=== PATIENT | female | born 1980 | race Caucasian/White ===

== ENCOUNTER 2018-02-15 03:27 | Observation (INO) ==
[2018-02-15] MEDS ORDERED: Morphine Inj 4 MG/ML Vial IV.PUSH ONE (04:08)
[2018-02-15] MEDS ORDERED: Sod Chloride 0.9% Inj 1,000 ML IV.SIG ONE (04:08)
[2018-02-15 04:30] LABS: Baso # (Auto) 0.1 th/mm3 (0.0-0.2); Baso % (Auto) 0.9 % (0.0-2.0); Eos # (Auto) 0.1 th/mm3 (0.0-0.4); Eos % (Auto) 1.9 % (0.0-4.0); Hematocrit 37.9 % (35.0-46.0); Hemoglobin 12.8 gm/dL (11.6-15.3); Lymph # (Auto) 2.9 th/mm3 (1.0-4.8); Lymph % (Auto) 41.2 % (9.0-44.0); Mean Corpuscular HGB Conc 33.7 % (32.0-36.0); Mean Corpuscular Hemoglobin 29.8 pg (27.0-34.0); Mean Corpuscular Volume 88.5 fL (80.0-100.0); Mean Platelet Volume 9.4 fL (7.0-11.0); Mono # (Auto) 0.4 th/mm3 (0.0-0.9); Mono % (Auto) 5.3 % (0.0-8.0); Neut # (Auto) 3.4 th/mm3 (1.8-7.7); Neut % (Auto) 50.7 % (16.0-70.0); Platelet Count 242 th/mm3 (150-450); Red Blood Count 4.28 mil/mm3 (4.00-5.30); Red Cell Distribution Width 12.5 % (11.6-17.2); White Blood Count 6.9 th/mm3 (4.0-11.0)
[2018-02-15 04:35] LABS: Chloride 105 meq/L (98-107); Potassium 3.7 meq/L (3.5-5.1); Sodium 139 meq/L (136-145)
[2018-02-15 04:39] LABS: Albumin 3.7 g/dL (3.4-5.0); Anion Gap 4 meq/L (5-15); Blood Urea Nitrogen 17 mg/dL (7-18); Calcium 8.8 mg/dL (8.5-10.1); Glucose,Random 89 mg/dL (74-106); Lipase 184 U/L (73-393)
[2018-02-15 04:42] LABS: Alanine Aminotransferase 21 U/L (10-53); Aspartate Aminotransferase 17 U/L (15-37); Glomerular Filtration Rate 88 mL/min (>89)
[2018-02-15 04:44] LABS: Total Protein 7.6 g/dL (6.4-8.2)
[2018-02-15 04:45] LABS: Alkaline Phosphatase 64 U/L (45-117)
--- NOTE | 2018-02-15 05:11 | ED ---
HPI General Chief Complaint: Chest Pain Stated Complaint: Chest pain x1hr Time Seen by Provider: 02/15/18 04:00 Source: patient Mode of arrival: ambulatory Limitations: no limitations History of Present Illness HPI narrative: 37-year-old woman who presents to the emergency department complaining of gastric abdominal pain. She states that she is a history of hepatobiliary disease and cholelithiasis. She had similar symptoms back in September. It done well since then. One minor episode of symptoms several months ago. Tonight she went to bed feeling well and was awoken with severe epigastric abdominal pain and cramping. She had some nausea but no vomiting with it. Describes the pain is excruciating. No fevers or chills. Has had kidney stones in the past but states feels very different than this. No other history of abdominal surgery. No other complaints. Complete Quality Measures for STEMI Alert Patients Related Data Home Medications Medication Instructions Recorded Confirmed buspirone 2.5 mg PO BID 02/15/18 02/15/18 lorazepam 0.5 mg BUCCAL DAILY PRN 02/15/18 02/15/18 pediatric pzgnkfiw-sdtm-ibn 1 tab PO DAILY 02/15/18 02/15/18 [Multi-Vitamins with Iron] ranitidine HCl [Zantac 75] 75 mg PO BID 02/15/18 02/15/18 Allergies Allergy/AdvReac Type Severity Reaction Status Date / Time Cephalosporins Allergy Hives Verified 02/15/18 03:46 omeprazole AdvReac Dizziness Verified 02/15/18 13:03 Review of Systems ROS: all other systems reviewed are negative [facility] Medical History Medical History Biliary colic (Acute) History of anemia as a child (Acute) History of anxiety (Acute) History of wisdom tooth extraction (Acute) Social History Social History Substance History: No History of Abuse Second Hand Smoke Exposure: No Smoking Status: Never smoker How Often Do You Have a Drink Containing Alcohol: Never Recent Travel in [place] within the Last 8 Weeks: No Recent Out of Country Travel within the Last 8 Weeks: No Immunization History Tetanus Immunization: Unsure Hx Influenza Vaccine This Season: Yes Exam Narrative Exam Narrative: GENERAL: Well-appearing 29-year-old woman, appears uncomfortable , nontoxic, no acute distress. SKIN: Focused skin assessment warm/dry. HEAD: Atraumatic. Normocephalic. EYES: Pupils equal and round. No scleral icterus. No injection or drainage. ENT: No nasal bleeding or discharge. Mucous membranes pink and moist. NECK: Trachea midline. No JVD. CARDIOVASCULAR: Regular rate and rhythm. No murmur appreciated. RESPIRATORY: No accessory muscle use. Clear to auscultation. Breath sounds equal bilaterally. GASTROINTESTINAL: Abdomen flat and soft. There is significant epigastric or right upper quadrant tenderness. Positive Hernandez's. MUSCULOSKELETAL: No obvious deformities. No clubbing. No cyanosis. No edema. NEUROLOGICAL: Awake and alert. No obvious cranial nerve deficits. Motor grossly within normal limits. Normal speech. PSYCHIATRIC: Appropriate mood and affect; insight and judgment normal. Course Initial Documented Vital Signs Temperature 97.9 F 02/15/18 03:47 Pulse Rate 82 02/15/18 03:47 Respiratory Rate 20 02/15/18 03:47 Blood Pressure 126/79 02/15/18 03:47 Pulse Oximetry 100 02/15/18 03:47 Last Documented Vital Signs Temperature 97.6 F 02/15/18 16:00 Pulse Rate 84 02/15/18 16:00 Respiratory Rate 20 02/15/18 16:00 Blood Pressure 135/82 02/15/18 16:00 Pulse Oximetry 95 02/15/18 16:00 Medical Decision Making [facility] Narrative Medical decision making narrative: 37-year-old woman presents emergency department with epigastric right upper quadrant abdominal pain. Suspect cholecystitis or biliary colic. Gastritis less likely. Doubt renal stone. She looks otherwise well albeit very uncomfortable at this time. Does not want morphine because she does not want to have to call someone for her ride if she is going home. Medical Screen Exam Complete: Yes Emergency Medical Condition: Yes Lab Data Result diagrams: 02/15/18 04:20 02/15/18 04:20 Lab Results 02/15/18 02/15/18 Range/Units 04:20 04:20 CBC w Diff Auto diff final WBC 6.9 (4.0-11.0) th/mm3 RBC 4.28 (4.00-5.30) mil/mm3 Hgb 12.8 (11.6-15.3) gm/dL Hct 37.9 (35.0-46.0) % MCV 88.5 (80.0-100.0) fL MCH 29.8 (27.0-34.0) pg MCHC 33.7 (32.0-36.0) % RDW 12.5 (11.6-17.2) % Plt Count 242 (150-450) th/mm3 MPV 9.4 (7.0-11.0) fL Neut % (Auto) 50.7 (16.0-70.0) % Lymph % (Auto) 41.2 (9.0-44.0) % [place] % (Auto) 5.3 (0.0-8.0) % Eos % (Auto) 1.9 (0.0-4.0) % Baso % (Auto) 0.9 (0.0-2.0) % Neut # (Auto) 3.4 (1.8-7.7) th/mm3 Lymph # (Auto) 2.9 (1.0-4.8) th/mm3 [place] # (Auto) 0.4 (0.0-0.9) th/mm3 Eos # (Auto) 0.1 (0.0-0.4) th/mm3 Baso # (Auto) 0.1 (0.0-0.2) th/mm3 WBC Differential . Differential Comment . Sodium 139 (136-145) meq/L Potassium 3.7 (3.5-5.1) meq/L Chloride 105 (98-107) meq/L Carbon Dioxide 30.0 (21.0-32.0) meq/L Anion Gap 4 L (5-15) meq/L BUN 17 (7-18) mg/dL Creatinine 0.74 (0.50-1.00) mg/dL Estimated GFR 88 L (>89) mL/min Random Glucose 89 (74-106) mg/dL Calcium 8.8 (8.5-10.1) mg/dL Total Bilirubin 1.1 H (0.2-1.0) mg/dL AST 17 (15-37) U/L ALT 21 (10-53) U/L Alkaline Phosphatase 64 (45-117) U/L Total Protein 7.6 (6.4-8.2) g/dL Albumin 3.7 (3.4-5.0) g/dL Lipase 184 (73-393) U/L Beta HCG, Quant Less than 1 (0-5) mIU/mL Imaging Data Radiologist's impression: Cholangiopancreatography MRI 02/15/18 00:00 CONCLUSION: 1. 1.8 cm gallstone without evidence of common duct stone. No ductal dilatation is seen. No Gallbladder Ultrasound 02/15/18 04:08 CONCLUSION: 1. Extrahepatic biliary dilatation with the common bile duct measuring 7 mm. The gallbladder is distended and the pancreatic duct is at the upper range of normal in terms of size. This is concerning for possible distal common bile duct obstruction. Consider MRCP to further assess. 2. Cholelithiasis. ECG Data Attestation: I personally reviewed and interpreted this ECG as follows: Interpretation: Normal sinus rhythm at a rate of 74, normal axis, normal no acute ischemia. Incomplete right bundle pattern and V1 V2. Discharge Plan Discharge Disposition Patient Disposition: 01 Discharge Home Discharge Condition Condition: Fair Discharge Order Discharge Orders: Discharge Order (Routine); Ordered 02/15/18 Ordered By: Flori Lobato Discharge Details Anticipated Discharge Date: 02/15/18 Physicians Team ED Provider: James Medina Primary Care Provider: Clarence Duque Attending Provider: Flori Lobato Other Providers: Misael Lennon V Status ED Status: Left Department Discharge Information Discharge Date/Time: 02/15/18 07:30
--- NOTE | 2018-02-15 06:19 | US ---
EXAM DATE: 02/15/2018 5:58 AM EDT AGE/SEX: 37 years / Female INDICATIONS: Epigastric pain with elevated bilirubin. CLINICAL DATA: This is the patient's initial encounter. Patient reports that signs and symptoms have been present for 1 day and indicates a pain score of 6/10. MEDICAL/SURGICAL HISTORY: Anemia. None. COMPARISON: No prior exams available for comparison. MEASUREMENTS: Liver:__ 20.0 cm. Common Bile Duct:__ 7mm. FINDINGS: Liver: No mass observed. Normal echotexture. Mild prominence to the intrahepatic biliary system. Portal Vein: Hepatopedal flow seen in portal vein. Common Duct: Dilated at 7 mm. No intraluminal mass or stone visualized. Gallbladder: Small solitary mobile gallstone. No gallbladder wall thickening or pericholecystic flui d. The gallbladder is distended. Pancreas: The visualized portions are within normal limits pancreatic duct at the upper limits of no rmal measuring 3 mm. Right Kidney: Normal echotexture and cortical thickness. No mass or hydronephrosis. Other: None CONCLUSION: 1. Extrahepatic biliary dilatation with the common bile duct measuring 7 mm. The gallbladder is dist ended and the pancreatic duct is at the upper range of normal in terms of size. This is concerning fo r possible distal common bile duct obstruction. Consider MRCP to further assess. 2. Cholelithiasis. Electronically signed by: De Thacker MD 02/15/2018 6:17 AM EDT
[2018-02-15] MEDS ORDERED: Sod Chloride 0.9% Inj 1,000 ML IV.CONT SCH (08:45)
[2018-02-15 10:32] VITALS: RESP 20
--- NOTE | 2018-02-15 13:04 | P.HP ---
History of Present Illness Service: medicine Primary Care Physician: Clarence Duque History of Present Illness: 37 y/o old female who has been having bouts of abdominal pain since x september of this year. She states she gets upper abdominal pain and burning stomach for which she went initially to [facility] and had an ultrasound. She was told she had gallstones. She followed up with Dr Carreon and had an egd and colonoscopy for evaluation and was suppose to be getting HIDA scan. She has been taking zantac on occasion for her burning stomach otherwise was doing ok until last pm when she woke with excruciating pain and cramping that radiated into her chest that brought her to the ER. This episode of pain was more in intense then any prior. She had some nausea but no emesis , no fever or chills. She does state that for the last 2 weeks she has had looser stools, diarrhea. She states she has her menses last thursday as well. - Diagnosis (1) Right upper quadrant abdominal pain (2) Anxiety Review of Systems All other systems reviewed negative except as stated in HPI PMFSH - History History Provided By: Patient, Family Member (spouse) - Medical History Medical History: Medical History (Last Reviewed 02/15/18 @ 05:10 by James Medina MD) History of anemia as a child History of anxiety History of wisdom tooth extraction - Tobacco History Second Hand Smoke Exposure: No Smoking Status: Never smoker - Alcohol History How Often Do You Have a Drink Containing Alcohol: Never - Substance Use History Substance History: No History of Abuse - Travel History Recent Travel in the [place] Within the Last 8 Weeks: No Recent Travel Out of the Country Within the Last 8 Weeks: No - Immunization History Tetanus Immunization: Unsure Hx Influenza Vaccine This Season: Yes Medications and Allergies Active Medications: Active Medications Buspirone HCl (Buspar) 2.5 mg PO BID [facility] Sodium Chloride (Ns Inj) 1,000 mls @ 100 mls/hr IV.CONT .Q10H [facility] Last Admin: 02/15/18 09:33 Dose: 100 mls/hr Ondansetron HCl (Zofran Inj) 4 mg IV.PUSH Q6H PRN PRN Reason: NAUSEA OR VOMITING Sodium Chloride (Ns Flush) 2 ml IV.FLUSH PRN PRN PRN Reason: FLUSH AFTER USING IV ACCESS Allergies Allergy/AdvReac Type Severity Reaction Status Date / Time Cephalosporins Allergy Hives Verified 02/15/18 03:46 omeprazole AdvReac Dizziness Verified 02/15/18 13:03 Home Medications Medication Instructions Recorded Confirmed Type buspirone 2.5 mg PO BID 02/15/18 02/15/18 History lorazepam 0.5 mg BUCCAL DAILY PRN 02/15/18 02/15/18 History pediatric iwixybwm-eaag-eld 1 tab PO DAILY 02/15/18 02/15/18 History [Multi-Vitamins with Iron] ranitidine HCl [Zantac 75] 75 mg PO BID 02/15/18 02/15/18 History Exam Vital signs: Vital Signs 02/15/18 03:47 02/15/18 04:36 02/15/18 04:42 Temperature 97.9 F Pulse Rate 82 60 Respiratory Rate 20 18 16 Blood Pressure 126/79 101/57 L Pulse Oximetry 100 100 02/15/18 06:56 02/15/18 08:45 02/15/18 12:00 Temperature 97.3 F L 97 F L Pulse Rate 60 62 57 L Respiratory Rate 16 20 20 Blood Pressure 107/68 102/56 L 99/54 L Pulse Oximetry 100 100 99 Intake & Output 02/14/18 02/15/18 02/15/18 18:59 06:59 18:59 Intake Total 100 / 100 1000 / 1000 Balance 100 / 100 1000 / 1000 Weight 66.4 kg 66.4 kg Intake: IV 100 / 100 1000 / 1000 Ofirmev Inj 1,000 mg In 100 ml 100 / 100 @ 400 mls/hr IV.SIG ONCE ONE Rx #:[id number] NS Inj 1,000 ML @ Wide Open IV. 1000 / 1000 SIG BOLUS ONE Rx#:[id number] Other: Weight On Admission 66.4 kg - Constitutional no acute distress - Routine HEENT Exam Head: Present: normocephalic Eye: Present: EOMI ENT: Present: mucous membranes moist - Routine Respiratory Exam Present: CTA bilaterally - Routine Cardiovascular Exam Present: RRR - Routine Abdominal Exam Present: tenderness Comments: rt and mid epigatric tenderness to mild palpation - Routine Extremities Exam Present: full ROM - Routine Skin Exam Present: intact - Routine Neurological Exam Present: alert, oriented X3 Results - Labs CBC & Chem 7: 02/15/18 04:20 02/15/18 04:20 Labs: Laboratory Results - last 24 hr 02/15/18 02/15/18 04:20 04:20 CBC w Diff Auto diff final WBC 6.9 RBC 4.28 Hgb 12.8 Hct 37.9 MCV 88.5 MCH 29.8 MCHC 33.7 RDW 12.5 Plt Count 242 MPV 9.4 Neut % (Auto) 50.7 Lymph % (Auto) 41.2 [place] % (Auto) 5.3 Eos % (Auto) 1.9 Baso % (Auto) 0.9 Neut # (Auto) 3.4 Lymph # (Auto) 2.9 [place] # (Auto) 0.4 Eos # (Auto) 0.1 Baso # (Auto) 0.1 WBC Differential . Differential Comment . Sodium 139 Potassium 3.7 Chloride 105 Carbon Dioxide 30.0 Anion Gap 4 L BUN 17 Creatinine 0.74 Estimated GFR 88 L Random Glucose 89 Calcium 8.8 Total Bilirubin 1.1 H AST 17 ALT 21 Alkaline Phosphatase 64 Total Protein 7.6 Albumin 3.7 Lipase 184 Beta HCG, Quant Less than 1 - Imaging Impressions Gallbladder Ultrasound 02/15/18 04:08 CONCLUSION: 1. Extrahepatic biliary dilatation with the common bile duct measuring 7 mm. The gallbladder is distended and the pancreatic duct is at the upper range of normal in terms of size. This is concerning for possible distal common bile duct obstruction. Consider MRCP to further assess. 2. Cholelithiasis. Caprini VTE Risk Assessment Caprini VTE Risk Assessment: No/Low Risk (score <= 1) Caprini Risk Assessment Model: Point Value = 1 Point Value = 2 Point Value = 3 Point Value = 5 Age 41-60 Minor surgery BMI > 25 kg/m2 Swollen legs Varicose veins or History of unexplained or recurrent spontaneous Oral contraceptives or hormone replacement Sepsis (< 1 month) Serious lung disease, including pneumonia (< 1 month) Abnormal pulmonary function Acute myocardial infarction Congestive heart failure (< 1 month) History of inflammatory bowel disease Medical patient at bed rest Age 61-74 Arthroscopic surgery Major open surgery (> 45 min) Laparoscopic surgery (> 45 min) Malignancy Confined to bed (> 72 hours) Immobilizing plaster cast Central venous access Age >= 75 History of VTE Family history of VTE Factor V Leiden Prothrombin [id number] Lupus anticoagulant Anticardiolipin antibodies Elevated serum homocysteine Heparin-induced thrombocytopenia Other congenital or acquired thrombophilia Stroke (< 1 month) Elective arthroplasty Hip, pelvis, or leg fracture Acute spinal cord injury (< 1 month) Prophylaxis Regimen: Total Risk Factor Score Risk Level Prophylaxis Regimen 0-1 Low Early ambulation 2 Moderate Order ONE of the following: *Sequential Compression Device (SCD) *Heparin 5000 units SQ BID 3-4 Higher Order ONE of the following medications: *Heparin 5000 units SQ TID *Enoxaparin/Lovenox 40 mg SQ daily (WT < 150 kg, CrCl > 30 mL/min) *Enoxaparin/Lovenox 30 mg SQ daily (WT < 150 kg, CrCl > 10-29 mL/min) *Enoxaparin/Lovenox 30 mg SQ BID (WT < 150 kg, CrCl > 30 mL/min) AND/OR *Sequential Compression Device (SCD) 5 or more Highest Order ONE of the following medications: *Heparin 5000 units SQ TID (Preferred with Epidurals) *Enoxaparin/Lovenox 40 mg SQ daily (WT < 150 kg, CrCl > 30 mL/min) *Enoxaparin/Lovenox 30 mg SQ daily (WT < 150 kg, CrCl > 10-29 mL/min) *Enoxaparin/Lovenox 30 mg SQ BID (WT < 150 kg, CrCl > 30 mL/min) AND *Sequential Compression Device (SCD) Assessment and Plan - Assessment (1) Right upper quadrant abdominal pain Code(s): R10.11 - Right upper quadrant pain Status: Acute Plan: rt upper quadrant pain recurrent with cholelithiasis and ultasound concerning for distal obstrution, she has had several episodes of this pain this being the worse, She has seen Dr Carreon and had egd/colo. Will get mrcp today. (2) Anxiety Code(s): F41.9 - Anxiety disorder, unspecified Status: Acute Plan: does well with her low dose buspirone, will continue - Plan Discussed Condition With: patient and
[2018-02-15] MEDS ORDERED: Famotidine PF Inj 20 MG/2 ML Vial IV.PUSH SCH (14:00)
[2018-02-15] MEDS ORDERED: Acetaminophen 325 MG Tablet PO PRN (16:50)
--- NOTE | 2018-02-15 17:03 | MR ---
EXAM DATE: 02/15/2018 4:35 PM EDT AGE/SEX: 37 years / Female INDICATIONS: Abdominal pain. CLINICAL DATA: This is the patient's subsequent encounter. Patient reports that signs and symptoms h ave been present for 2 days and indicates a pain score of 3/10. MEDICAL/SURGICAL HISTORY: Anemia. None. COMPARISON: No prior exams available for comparison. TECHNIQUE: Multiplanar, multisequence images of the abdomen were obtained without contrast including dedicated cholangiographic images. FINDINGS: The liver and spleen are normal in size and signal intensity without evidence of focal mass. There i s a 1.8 cm stone within the gallbladder. Examination of biliary tree with multiplanar and 3-D reconst ruction demonstrates no evidence of common duct stone. No intrahepatic or extra hepatic ductal dilata tion is identified. The pancreatic duct is unremarkable. The adrenal glands and kidneys appear stevie l bilaterally. No hydronephrosis or mass lesions are identified. The spleen is normal in size and fr ee of focal defects. No free fluid is identified. CONCLUSION: 1. 1.8 cm gallstone without evidence of common duct stone. No ductal dilatation is seen. No Electronically signed by: Phu Pompa MD 02/15/2018 5:02 PM EDT
--- NOTE | 2018-02-15 17:20 | ECG ---
Date Performed: 02/15/2018 Time Performed: 03:50:42 PTAGE: 37 years EKG: Sinus rhythm INCOMPLETE RIGHT BUNDLE BRANCH BLOCK BORDERLINE ECG PREVIOUS TRACING : 11/07/2014 19.07 Since the previous tracing, no significant change noted DOCTOR: Neel Hartman Interpretating Date/Time 02/15/2018 17:19:08
[2018-02-15 18:03] VITALS: BP 135/82; PULSE 84; TEMP 97.6; O2SAT 95
--- NOTE | 2018-02-15 18:21 | P.CONGI ---
History of Present Illness Chief complaint: choledocholithiasis History of Present Illness: Patient is a 37-year-old female who was admitted to the hospital through the ER today. She had presented to the ER with severe pain in the epigastrium and right upper quadrant. There is no radiation to the back. The pain was associated with nausea however she chills jaundice pruritus.. She reports 2 similar episodes of pain in the past 4 months. She gives history of intermittent heartburn however denies dysphagia constipation diarrhea hematemesis melena hematochezia anorexia or weight loss. Review of Systems Gastrointestinal: Reports abdominal pain, Reports nausea PMFSH - History History Provided By: Patient, Family Member (spouse) - Medical History Medical History: Medical History (Last Updated 02/15/18 @ 12:51 by Flori Lobato MD) History of anemia as a child History of anxiety History of wisdom tooth extraction Kidney stones - Tobacco History Second Hand Smoke Exposure: No Smoking Status: Never smoker - Alcohol History How Often Do You Have a Drink Containing Alcohol: Never - Substance Use History Substance History: No History of Abuse - Travel History Recent Travel in the [place] Within the Last 8 Weeks: No Recent Travel Out of the Country Within the Last 8 Weeks: No - Immunization History Tetanus Immunization: Unsure Hx Influenza Vaccine This Season: Yes Medications and Allergies Active Medications: Active Medications Acetaminophen (Tylenol) 650 mg PO Q4H PRN PRN Reason: HEADACHE Last Admin: 02/15/18 17:16 Dose: 650 mg Buspirone HCl (Buspar) 2.5 mg PO BID [facility] Last Admin: 02/15/18 14:17 Dose: 2.5 mg Famotidine (Pepcid Pf Inj) 20 mg IV.PUSH Q12HR [facility] Last Admin: 02/15/18 14:20 Dose: 20 mg Sodium Chloride (Ns Inj) 1,000 mls @ 100 mls/hr IV.CONT .Q10H [facility] Last Admin: 02/15/18 09:33 Dose: 100 mls/hr Miscellaneous (Pill Splitter) 1 each OTHER UNSCH PRN PRN Reason: SEE LABEL COMMENTS Ondansetron HCl (Zofran Inj) 4 mg IV.PUSH Q6H PRN PRN Reason: NAUSEA OR VOMITING Sodium Chloride (Ns Flush) 2 ml IV.FLUSH PRN PRN PRN Reason: FLUSH AFTER USING IV ACCESS Allergies Allergy/AdvReac Type Severity Reaction Status Date / Time Cephalosporins Allergy Hives Verified 02/15/18 03:46 omeprazole AdvReac Dizziness Verified 02/15/18 13:03 Home Medications Medication Instructions Recorded Confirmed Type buspirone 2.5 mg PO BID 02/15/18 02/15/18 History lorazepam 0.5 mg BUCCAL DAILY PRN 02/15/18 02/15/18 History pediatric pdwbawrn-oezc-kxw 1 tab PO DAILY 02/15/18 02/15/18 History [Multi-Vitamins with Iron] ranitidine HCl [Zantac 75] 75 mg PO BID 02/15/18 02/15/18 History Exam Vital signs: Vital Signs 02/15/18 03:47 02/15/18 04:36 02/15/18 04:42 Temperature 97.9 F Pulse Rate 82 60 Respiratory Rate 20 18 16 Blood Pressure 126/79 101/57 L Pulse Oximetry 100 100 02/15/18 06:56 02/15/18 08:45 02/15/18 12:00 Temperature 97.3 F L 97 F L Pulse Rate 60 62 57 L Respiratory Rate 16 20 20 Blood Pressure 107/68 102/56 L 99/54 L Pulse Oximetry 100 100 99 02/15/18 16:00 Temperature 97.6 F Pulse Rate 84 Respiratory Rate 20 Blood Pressure 135/82 Pulse Oximetry 95 Intake & Output 02/14/18 02/15/18 02/15/18 18:59 06:59 18:59 Intake Total 100 / 100 1000 / 1000 Balance 100 / 100 1000 / 1000 Weight 66.4 kg 66.4 kg Intake: IV 100 / 100 1000 / 1000 Ofirmev Inj 1,000 mg In 100 ml 100 / 100 @ 400 mls/hr IV.SIG ONCE ONE Rx #:[id number] NS Inj 1,000 ML @ Wide Open IV. 1000 / 1000 SIG BOLUS ONE Rx#:[id number] Other: Weight On Admission 66.4 kg - Routine Abdominal Exam Present: tenderness, guarding Comments: Liver and spleen not palpable no other masses palpable no ascites bowel sounds are normal Results - Labs CBC & Chem 7: 02/15/18 04:20 02/15/18 04:20 Labs: Laboratory Results - last 24 hr 02/15/18 02/15/18 04:20 04:20 CBC w Diff Auto diff final WBC 6.9 RBC 4.28 Hgb 12.8 Hct 37.9 MCV 88.5 MCH 29.8 MCHC 33.7 RDW 12.5 Plt Count 242 MPV 9.4 Neut % (Auto) 50.7 Lymph % (Auto) 41.2 [place] % (Auto) 5.3 Eos % (Auto) 1.9 Baso % (Auto) 0.9 Neut # (Auto) 3.4 Lymph # (Auto) 2.9 [place] # (Auto) 0.4 Eos # (Auto) 0.1 Baso # (Auto) 0.1 WBC Differential . Differential Comment . Sodium 139 Potassium 3.7 Chloride 105 Carbon Dioxide 30.0 Anion Gap 4 L BUN 17 Creatinine 0.74 Estimated GFR 88 L Random Glucose 89 Calcium 8.8 Total Bilirubin 1.1 H AST 17 ALT 21 Alkaline Phosphatase 64 Total Protein 7.6 Albumin 3.7 Lipase 184 Beta HCG, Quant Less than 1 - Imaging Impressions Cholangiopancreatography MRI 02/15/18 00:00 CONCLUSION: 1. 1.8 cm gallstone without evidence of common duct stone. No ductal dilatation is seen. No Gallbladder Ultrasound 02/15/18 04:08 CONCLUSION: 1. Extrahepatic biliary dilatation with the common bile duct measuring 7 mm. The gallbladder is distended and the pancreatic duct is at the upper range of normal in terms of size. This is concerning for possible distal common bile duct obstruction. Consider MRCP to further assess. 2. Cholelithiasis. Assessment and Plan (1) Biliary colic Status: Acute Code(s): N20.0 - Calculus of kidney (2) Cholelithiasis Status: Acute Code(s): K80.20 - Calculus of gallbladder without cholecystitis without obstruction - Plan 1. Patient needs surgical consult for lap cholecystectomy. 2. MRCP ruled out CBD stones suggested by ultrasound. No need for ERCP
== END 2018-02-15 20:52 | disposition home or self-care (01) ==
LOC: PHEDA 03:27 → PH3 03:27 → PHED 03:27 → PH3 07:30
PROVIDERS: ADMIT Legal Medicine; ATTEND Legal Medicine